=== PATIENT | female | born 2005 | race Caucasian/White ===

== ENCOUNTER 2024-04-30 18:10 | Observation (INO) | payer OTHER ==
[~2024-04-30] VITALS: Ht 154.9 cm; Wt 89.8 kg
[2024-04-30] MEDS ORDERED: TRAZ100 (18:55)
[2024-04-30] MEDS ORDERED: Diphth,Pertuss(Acell),Tet Vac 0.5 ML VIAL IM ONE ×2 (19:25→23:25)
[2024-04-30 20:00] LABS: BASOPHILS ABSOLUTE AUTO 0.07 K/mm3 (0.00-0.23); BASOPHILS PERCENT AUTO 1 % (0-2); EOSINOPHILS PERCENT AUTO 2 % (0-6); Hematocrit 43.8 % (33.0-51.0); Hemoglobin 15.1 g/dL (11.5-16.0); IMMATURE GRAN ABSOLUTE AUTO 0.01 K/mm3 (0.00-0.10); IMMATURE GRAN PERCENT AUTO 0 % (0-1); LYMPHOCYTES ABSOLUTE AUTO 1.46 K/mm3 (0.84-5.20); LYMPHOCYTES PERCENT AUTO 21 % (21-46); MONOCYTES ABSOLUTE AUTO 0.42 K/mm3 (0.16-1.47); MONOCYTES PERCENT AUTO 6 % (4-13); Mean Corpuscular HGB 28.3 pg (26.0-34.0); Mean Corpuscular HGB Conc 34.5 g/dL (31.5-36.5); Mean Corpuscular Volume 82 fL (80-100); Mean Platelet Volume 10.5 fL (9.1-12.4); NEUTROPHILS ABSOLUTE AUTO 4.79 K/mm3 (1.96-9.15); NEUTROPHILS PERCENT AUTO 70 % (41-73); Platelet Count 335 K/mm3 (150-400); RDW Coefficient Variation 12.9 % (11.7-14.2); RDW Standard Deviation 38.6 fL (35.1-46.3); Red Blood Cell Count 5.34 M/mm3 (3.80-5.20); White Blood Cell Count 6.85 K/mm3 (4.00-11.30)
[2024-04-30 20:18] LABS: Source, Urine Clean Catch
[2024-04-30 20:23] LABS: Bilirubin, Urine Neg (Neg); Blood, Urine Neg (Neg); Glucose Qualitative, Urine Neg (Neg); Ketones, Urine Neg (Neg); Leukocyte Esterase, Urine Neg (Neg); Nitrite, Urine Neg (Neg); Protein, Urine Neg (Neg); Specific Gravity, Urine 1.015 (1.003-1.022); Urobilinogen, Urine NORM (Normal)
[2024-04-30 20:25] LABS: Ethanol (Alcohol), Blood, Med <3 mg/dL; Salicylate <1.7 mg/dL (2.8-20.0)
[2024-04-30 20:31] LABS: Appearance, Urine Clear (Clear); Color, Urine Pale Yellow (P-Yellow)
[2024-04-30 20:33] LABS: Acetaminophen, Random <2.0 ug/mL (10.0-30.0); Alanine Aminotransfer (ALT/SGP 23 U/L (12-78); Albumin, Blood 3.9 g/dL (3.4-5.0); Albumin/Globulin Ratio 1.1 (0.8-1.8); Alk Phos 82 U/L (50-136); Anion Gap 9 mmol/L (3-11); Aspartate Aminotrans (AST/SGOT 23 U/L (12-37); Bilirubin, Total 0.5 mg/dL (0.1-1.0); Blood Urea Nitrogen 11 mg/dL (8-24); Bun/Creatinine Ratio 18.2 (12.0-20.0); CO2, Blood 21 mmol/L (21-32); Calcium, Blood 9.5 mg/dL (8.5-10.1); Chloride, Blood 112 mmol/L (98-108); Globulin, Blood 3.7 g/dL (2.2-4.0); Glomerular Filtration Rate 132 (60-); Glucose, Blood 101 mg/dL (70-99); Potassium, Blood 4.2 mmol/L (3.5-5.5); Sodium, Blood 138 mmol/L (136-145); Total Protein, Blood 7.6 g/dL (6.4-8.2)
[2024-04-30 20:57] LABS: U Amphetamine Screen Not Detected; U Barbituate Screen Not Detected; U Benzodiazapine Screen Not Detected; U Buprenorphine Screen Not Detected; U Cannabinoids Screen DETECTED; U Cocaine Screen Not Detected; U Methadone Screen Not Detected; U Methamphetamine Screen Not Detected; U Opiates Screen Not Detected; U Oxycodone Screen Not Detected; U Phencyclidine Screen Not Detected
[2024-05-01 12:38] LABS: CORONAVIRUS COVID-19 AG Negative (NEGATIVE); INFLUENZA A AG Negative (NEGATIVE); INFLUENZA B AG Negative (NEGATIVE)
[2024-05-02] MEDS ORDERED: ABILIFY MYCITE10 M2 PO (11:50)
== END 2024-05-01 15:34 | disposition other institution (70) ==
LOC: ER 18:10 → EOR 18:11
PROVIDERS: Emergency Medicine; ADMIT Student in an Organized Health Care Education/Training Program
DX: T43.212A Poisoning by selective serotonin and norepinephrine reuptake inhibitors, intentional self-harm, initial encounter (principal); R11.10 Vomiting, unspecified; S51.812A Laceration without foreign body of left forearm, initial encounter; X78.9XXA Intentional self-harm by unspecified sharp object, initial encounter; F41.8 Other specified anxiety disorders; Z79.899 Other long term (current) drug therapy
CPT/HCPCS: 80053; 80320; 81003; 81025; 85025; 87428-QW; 90471; 90715; 93005; 93010; 99285-25; G0378; G0480

== ENCOUNTER 2024-05-01 10:28 | Inpatient (IN) | payer OTHER ==
[~2024-05-01] VITALS: Ht 152.4 cm; Wt 98.0 kg
[~2024-05-01 10:28] MED LIST: TRAZ100
[2024-05-01] MEDS ORDERED: Acetaminophen 325 MG TABLET PO PRN (12:35)
[2024-05-01] MEDS ORDERED: Polyethylene Glycol 3350 17 gm PO PRN (12:35)
[2024-05-01] MEDS ORDERED: Aluminum Hydroxide 320MG/5ML 473 ML PO PRN (12:35)
[2024-05-01] MEDS ORDERED: Ondansetron 4 MG SoluTab MM PRN (12:40)
[2024-05-01] MEDS ORDERED: LORazepam 2 MG Tab PO PRN (12:40)
[2024-05-01] MEDS ORDERED: TraZODone HCl 50 MG Tab PO PRN (12:40)
[2024-05-01] MEDS ORDERED: Melatonin 3 MG Tab PO PRN (12:40)
[2024-05-01] MEDS ORDERED: Ibuprofen 600 MG Tab PO PRN (12:40)
[2024-05-01] MEDS ORDERED: OLANZapine ODT 10 MG Tab MM PRN (12:40)
[2024-05-01] MEDS ORDERED: LORazepam 2 MG/ML 1ML Injection IM PRN (12:40)
[2024-05-01] MEDS ORDERED: Haloperidol 5 MG Tab PO PRN (12:45)
[2024-05-01] MEDS ORDERED: HydrOXYzine Pamoate 50 MG Cap PO PRN (12:45)
[2024-05-01] MEDS ORDERED: FLU VACC TS2024-25(6MOS UP)/PF 45 MCG/0.5 ML SYRINGE IM ONE (12:45)
[2024-05-01] MEDS ORDERED: Calcium Carbonate 500 MG Tab Chew PO PRN (12:45)
[2024-05-01] MEDS ORDERED: Haloperidol Lactate Inj. 5 MG/ML Injection IM PRN (12:45)
[2024-05-01] MEDS ORDERED: DiphenhydrAMINE HCl 50 MG/ML 1ML Vial IV PRN (12:45)
[2024-05-01] MEDS ORDERED: DiphenhydrAMINE HCl 50 MG Cap PO PRN (12:45)
[2024-05-01 15:43] VITALS: BP 138/99
[2024-05-01 16:05] VITALS: BP 138/99
--- NOTE | 2024-05-01 18:00 | NUR ---
ADMISSION NOTE: PT BROUGHT OVER FROM [facility] ED BY BRYAN MONET. SHE IS A&O X4, AND DENIES ANY HI/SI/AH/VH. BELONGINGS CHECKED IN BY CHIKI AND TWO RN SKIN CHECK DONE BY THIS RN AND ANA LAURA MULLINS. SKIN SHOWS NO ABNORMALITIES. PT CHANGED INTO UNIT SCRUBS. INTAKE ASSESSMENT COMPLETED AND PT STATES COMPLETE UNDERSTANDING OF CIRCUMSTANCES THAT BROUGHT PT TO THE UNIT. SHE STATES SHE TOOK AN OVERDOSE OF HER TRAZADONE ON PURPOSE BUT DID NOT PLAN IT, IT WAS SPONTANEOUS. SHE STATES HER REASON FOR ATTEMPTING SI WAS D/T THE SUICIED OF HER MOTHER 03/01/2025 FROM INTENTIONAL OD OF SLEEPING PILLS. SHE STATES AFTER THE INGESTION SHE PHONED HER COUSIN AND HE CALLED FOR HELP. SHE STATES ONLY ONE OTHER SI WHEN SHE WAS 5 YEARS OLD. THERE WAS NO ATTEMPT AT THAT TIME. SHE STATES SHE VOLUNTEERS TO BE AT [facility] BUT ARRIVES ON A HOLD. SHE STATES SHE HAS NOT BEEN ON REGULAR MEDICATIONS X3 MONTHS SINCE SHE LIVED IN [place]. SHE USED TO TAKE TRAZADONE, ADDERRALL, AND LYRICA. PT C/O RECENT DIFFICULTY SLEEPING. SHE IS PLEASANT AND COOPERATIVE. ARRIVES WITH MALODOROUS BODY ODOR. ONCE SHE WAS ORIENTED TO THE UNIT SHE WAS GIVEN TOILETRIES AND SHOWERED SELF. PT WAS INTRODUCED TO HER PEERS AND PLEASANTLY INTERACTING. SHE REFUSED MEAL SAYING SHE ALREADY ATE AT ED.
[2024-05-01] MEDS ORDERED: QUEtiapine Fumarate 200 MG Tab PO SCH (21:00)
--- NOTE | 2024-05-02 03:14 | NUR ---
SHIFT SUMMARY: ASSUMED CARE FROM PRIOR SHIFT. PATIENT IS A/OX4, ABLE TO VOICE NEEDS AND HAVE MEANINGFUL CONVERSATION. SHE DIDN'T PARTICIPATE IN NIGHT GROUP OR SNACK TIME. SHE CURRENTLY DENIES SI, VH OR AH. SHE GOES TO BED EARLY WITHOUT ENCOURAGEMENT. SHE IS COMPLIANT WITH ASSESMENT AND MEDICATIONS. SHE DOES TELL ME "I'M STILL FEELING DEPRESSED, BUT THIS PLACE IS A GOOD PLACE". SHE CONTINUES TO SLEEP THROUGH THE NIGHT WITHOUT BEHAVIORS OR ISSUES. WE WILL CONTINUE TO MONITOR EVERY 15 MIN FOR SAFETY AND COMFORT.
[2024-05-02 07:28] LABS: CHOL/HDL RATIO 2.2; Cholesterol 121 mg/dL (50-200); HDL Cholesterol 55 mg/dL (>39); LDL/HDL RATIO 0.9; Low Density Lipoprotein Chol 51 mg/dL (0-110); Triglycerides 75 mg/dL (30-140); Very Low Density Lipoprot Chol 15 mg/dL (6-28)
[2024-05-02 07:53] VITALS: BP 140/91
[2024-05-02] MEDS ORDERED: buPROPion HCL 150 MG TAB.SR.12H PO SCH (09:00)
[2024-05-02] MEDS ORDERED: Multivitamins 1 Tab PO SCH (09:00)
[2024-05-02] MEDS ORDERED: ABILIFY MYCITE10 M2 PO (11:50)
--- NOTE | 2024-05-02 14:25 | NUR ---
PT DENIED SI, HI, AVH AND PAIN. SHE ENDORSED ANXIETY OF 2/10w. SHE HAS BEEN PARTICIPATING IN GROUPS AND VISITING WITH PEERS. SHE ATTENDED THE COMMUNITY MEETING AND EXPRESSED GRATITUDE FOR HER "FAMILY." SHE WROTE THAT SHE IS FEELING "HAPPY AND CALM." HER GOALS ARE: "I WAN TO KNOW MORE COPING SKILLS. i WANT TO LEARN HOW TO CONTROL THE BAD THOUGHTS BETTER."
[2024-05-02 22:33] VITALS: BP 141/104
--- NOTE | 2024-05-03 03:50 | NUR ---
SHIFT SUMMARY: ASSUMED CARE FROM PRIOR SHIFT. PATIENT IS A/OX4, ABLE TO VOICE NEEDS AND HAVE MEANINGFUL CHILD LIKE CONVERSATIONS. SHE PARTICIPATES IN GROUP AND SNACK TIME. SHE IS COMPLIANT WITH MEDICATIONS, ASSESSMENT AND POC. SHE IS SOCIALIZING APPROPRIATELY WITH STAFF AND OTHER PATIENTS. DURING ASSESSMENT THIS SHIFT, SHE TELLS ME SHE WILL BE DISCHARGING HOME TO AN "UNCLE'S FRIEND" SHE TELLS ME "HE IS REALY NICE AND LETS ME DO WHATEVER I WANT". I DID DISCUSS WITH HER THAT SHE MAY WANT TO CONSIDER TO START BRUSHING HER HAIR OUT I'M CONCERNED IT IS BECOMMING VERY MATTED. SHE IS AGREEABLE TO THIS PLAN TOMORROW SHE DOESN'T LIKE TO "BRUSH HER HAIR". I WILL ASK AM MHW TO START WORKING ON HAIR HYGEINE. SHE CURRENTLY DENIES SI, VH AND AH. SHE GOES TO BED AFTER SNACK AND MOVIE WITHOUT ENCOURAGEMENT. NO NOTED BEHAVIORS OR ISSUES. WE WILL CONTINUE TO MONITOR EVERY 15 MIN FOR SAFETY AND COMFORT.
--- NOTE | 2024-05-03 06:08 | NUR ---
PATIENT SLEPTED THROUGHT THE NIGHT. NO NOTED BEHAVIORS OR ISSUES. WE WILL CONTINUE TO MONITOR EVERY 15 MIN FOR SAFETY AND COMFORT.
[2024-05-03 08:15] VITALS: BP 140/106
--- NOTE | 2024-05-03 10:00 | NUR ---
PT ALERT AND ORIENTED X3. PT GAVE AN EXTENSIVE HISTORY OF HER LIFE. SHE HAS HER BIOLOGICAL PARENTS AND ADOPTED PARENTS. HER BIOLOGICAL MOTHER COMMITTED SUICIDE ON 03/01/24 BY OVER DOSING ON "200" SLEEPING PILLS. ADOPTED JOLIE LIVES IN [place] AND THEY DON'T GET ALONG VERY WELL. ADOPTED DAD OF DIABETES ABOUT 3 YEARS AGO. BIOLOGICAL DAD IS AROUND SOMEWHERE, BUT SHE DOESN'T KNOW WHERE AT. SHE WAS LIVING WITH HER COUSIN BEFORE COMING TO THE HOSPITAL. SHE WILL LIVE WITH HER COUSIN [place] [facility] IN [place]. PT IS EASILY PLEASED AND LIKES TOO PLEASE OTHERS. CHILD LIKE MANOR IN TALKING WIH PT.WILL CONTINUE TO MONITOR Q 15 MINS FOR SAFETY.
--- NOTE | 2024-05-03 14:12 | NUR ---
STAFF HAVE WORKED WITH PT HAIR AND DETANGLING FOR SEVERAL HOURS OFF AND ON TODAY. SHE HAS REQUESTED HER HAIR BE CUT, PT SIGNED ATESTING TO THE REQUEST.
--- NOTE | 2024-05-03 17:50 | NUR ---
PT HAS BEEN TALKATIVE AND INTERACTIVE WITH STAFF AND OTHER PATIENTS IN THE MILIEU. PT HAS BEEN ACTIVE IN GROUPS AND MILIEU ACTIVITIES, THE KNOTS IN HER HAIR WERE CUT OUT PER HER REQUEST, SHE SHOWERED AND WAS SMILING AND LAUGHING WITH OTHERS, STATES SHE REALLY ENJOYS THE SHORTER HAIR. SHE HAS DENIED SI/HI A/V/T HALLUCINATIONS TODAY.
[2024-05-03 23:46] VITALS: BP 150/14
--- NOTE | 2024-05-04 04:11 | NUR ---
PATIENT WAS IN THE GROUP ROOM COLORING AT THE BEGINNING OF THE SHIFT. SHE PRESENTED WITH QUIET SPEECH AND A FLAT AFFECT, SLOW TO RESPOND, BUT ACTIVELY PARTICIPATING. 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 SHE PARTICIPATED IN SNACK AND FOLLOW UP AT 1999. SHE WAS PLEASANT AND COOPERATIVE WITH CARES. SHE WAS COMPLIANT WITH EVENING MEDICATIONS. SHE WENT TO BED SHORTLY AFTER MEDICATION TIME AND WAS NOTED TO BE RESTING QUIETLY WITH EYES CLOSED AND RESPIRATIONS CONFIRMED. SHE HAD NO S/SX SUICIDAL IDEATION OR SELF HARM NOTED THIS SHIFT. CONTINUING TO MONITOR FOR SAFETY WITH Q15 MINUTE CHECKS.
[2024-05-04 08:21] VITALS: BP 147/105
--- NOTE | 2024-05-04 17:58 | NUR ---
SHIFT SUMMARY PT A/O X4; PLEASANT AND COOPERATIVE WITH CARE. SHE DENIES SI, HI, OR ANY HALLUCINATIONS. PT REPORTS THAT SHE IS DOING WELL BUT HAD NIGHTMARES LAST NIGHT. PT STARTED ON PRAZOSIN FOR THE NIGHTMARES. SHE HAS PARTICIPATED IN ALL GROUPS AND MEALS THIS SHIFT. MOOD IS EUTHMIC AND SHE CONTINUES TO BE MONITORED VIA Q15 ROUNDING FOR SAFETY.
[2024-05-04] MEDS ORDERED: Prazosin HCl 1 MG Cap PO SCH (21:00)
[2024-05-04 21:21] VITALS: BP 144/103
--- NOTE | 2024-05-05 05:21 | NUR ---
SHIFT SUMMARY Pt is A&O, calm, cooperative, eye contact is appropriate. Pt stated her mood was "good;" affect is euthymic and bright. Pt denies SI, HI, and hallucinations. She also denies pain or other medical issues. Pt reports having a little anxiety in the morning, but none at the time of the interview. She spoke about having recurrent nightmares and was happy to be trying prazosin. Spent evening in her room, coming out to make needs know. Staff continues to monitor for safety and wellness.
[2024-05-05 08:14] VITALS: BP 130/90
--- NOTE | 2024-05-05 17:49 | NUR ---
SHIFT SUMMARY PT STARTED HER DAY BY ATTENDING BKFT AND MORNING GROUP AND WAS CHEERFUL AND ENGAGING WITH THE MILIEU. AFTER HER PROVIDER SAW HER AND SHE WAS TOLD SHE WOULD BE HERE UNTIL WEDS SHE BECAME VERY UPSET ENGAGED IN ANGRY BABY TALK. SHE STATED THE PROVIDER TOLD HER SHE PROBABLY WOULDN'T BE HERE FOR HER FULL 5 DAYS LONG SHE PARTICIPATED IN THE MILIEU, WHICH SHE HAS BEEN DOING. SHE WAS YELLING LOUDLY, THIS RN REDIRECTED HER TO HER ROOM, SHE SLAMMED THE DOOR. SHE EVENTUALLY CALMED DOWN, TALKED WITH JAJA Das. NEW PLAN IS FOR PT TO D/C TOMORROW. SHE HAS SINCE BEEN COOPERATIVE AND PARTICIPATING. ONGOING Q15 MIN SAFETY CHECKS IN PLACE.
[2024-05-05 20:49] VITALS: BP 133/103
--- NOTE | 2024-05-06 05:17 | NUR ---
SHIFT SUMMARY Pt is A&O, calm, cooperative, eye contact is appropriate. Pt described her mood as "good, now." Affect is euthymic. Pt denied SI, HI, and hallucination. Pt stated that she was upset earlier in the day when the provider first said that she would not be d/c'd until Sunday. Staff later decided she could leave Sunday. She was active on the milieu during the evening hours. Staff continues q15m monitoring for safety and wellness.
[2024-05-06 08:07] VITALS: BP 136/86
[2024-05-06] MEDS ORDERED: MINIPRESS1 MG PO (14:34)
[2024-05-06] MEDS ORDERED: BUPR150ER PO (14:34)
[2024-05-06] MEDS ORDERED: QUET200 PO (14:35)
--- NOTE | 2024-05-06 16:08 | NUR ---
DISCHARGE PAPERWORK GONE OVER WITH PATIENT. PT EXPRESSED UNDERSTANDING OF FOLLOW UP APPOINTMENTS AND MEDICATIONS. MEDICATIONS FAXED TO [facility]. PT PICKED UP BY [employer] AND TO GO TO [facility] TO HALL CLEANER HER MEDICATIONS BEFORE GOING HOME. PT BELONGINGS RETURNED.
== END 2024-05-06 16:13 | disposition home or self-care (01) | DRG 885 ==
LOC: BHU 10:28
PROVIDERS: ADMIT Student in an Organized Health Care Education/Training Program
DX: F33.41 Major depressive disorder, recurrent, in partial remission (principal); R45.851 Suicidal ideations; F60.3 Borderline personality disorder; F43.10 Post-traumatic stress disorder, unspecified; Z28.04 Immunization not carried out because of patient allergy to vaccine or component; J45.909 Unspecified asthma, uncomplicated; Z79.899 Other long term (current) drug therapy
CPT/HCPCS: 36415; 80061; 83036; 84443; 86592; A9270